=== PATIENT | female | born 1940 | race Caucasian/White ===

== ENCOUNTER → 2018-03-15 09:58 | Outpatient (CLI) | payer OTHER, SELFPAY | PROVIDERS: Family Provider Family Medicine; PCP Family Medicine; Visit Provider Family Medicine | DX: Z13.820 Encounter for screening for osteoporosis (principal); Z78.0 Asymptomatic menopausal state; E07.9 Disorder of thyroid, unspecified; E11.9 Type 2 diabetes mellitus without complications; Z82.62 Family history of osteoporosis | CPT/HCPCS: 77080 ==

== ENCOUNTER 2019-08-17 15:38 | Emergency (ER) | payer OTHER, SELFPAY ==
[2019-08-17 15:43] VITALS: BP 184/81; PULSE 95; RESP 20; TEMP 36.7; O2SAT 96
--- NOTE | 2019-08-17 17:16 | DI.US.S_ITS ---
PROCEDURE: US PELVIC COMPLETE INDICATIONS: VAGINAL BLEEDING TECHNIQUE: Real-time scanning was performed of the pelvic organs, with image documentation. Additional endovaginal scanning was necessary due to incomplete visualization of the adnexal and endometrial structures by transabdominal scanning. COMPARISON: [facility], CT, KIDNEY/ URETER/BLADDER, 12/17/2012, 7:21. FINDINGS: Transabdominal scanning: Limited scanning through the kidneys shows no hydronephrosis. No pathologic free abdominal or pelvic fluid. Endovaginal scanning: Uterus: Uterus is enlarged measuring 10.8 x 5.4 x 6.6 cm. The endometrium is thickened measuring 22.5 mm in combined thickness. There are 2 uterine fibroids. A 2.6 x 1.4 x 1.1 cm intramural fibroid is seen in the anterior left uterine wall. A 3.2 x 3.1 x 2.2 cm submucosal fibroid is seen in in the left posterior wall. Ovaries: Ovaries are not visualized. IMPRESSION: 1. Thickened endometrium. In this postmenopausal woman, endometrial neoplasm needs to be excluded. Recommend gynecological followup and endometrial sampling. 2. Uterine fibroids. 3. Ovaries are not visualized. Dictated by: Umair Franco M.D. on 08/17/2019 at 18:38 Approved by: Umair Franco M.D. on 08/17/2019 at 18:42
--- NOTE | 2019-08-17 17:20 | ED.FEMALEGU ---
HPI - Female Genitourinary <SUSAN Priest-BC - Last Filed: 08/17/19 20:01> General Chief complaint: Urogenital-Female Stated complaint: blood in urine Time Seen by Provider: 08/17/19 16:39 Source: patient and family Mode of arrival: Ambulatory Limitations: no limitations History of Present Illness HPI Narrative: The patient is a 78-year-old female nonsmoker with history of hypothyroid who presents with a chief complaint of sudden onset of vaginal bleeding approximately 3 prior to arrival. She states that she was passing clots, she was worried about blood loss. She states that she has been passing blood even when not urinating. 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 She denies any vaginal discharge. She denies any abdominal pain, but notes some cramping yesterday. She denies any dysuria urgency or frequency. Denies fevers. Denies flank pain. States that the bleeding has slowed upon arrival to the emergency department. Related Data Home Medications Medication Instructions Recorded Confirmed aspirin 81 mg PO QDAY #0 02/12/13 atorvastatin [Lipitor] #0 02/12/13 doxazosin [Cardura XL] 8 mg PO HS #0 02/12/13 levothyroxine [Synthroid] 50 mcg PO QDAY #0 02/12/13 metformin [Glucophage XR] 500 mg PO QDAY #0 02/12/13 losartan-hydrochlorothiazide 1 tab PO QDAY #0 tab 03/19/13 Previous Rx's Medication Instructions Recorded cephalexin 500 mg PO TID 7 Days #21 cap 08/17/19 Exam <MOY Priest - Last Filed: 08/17/19 20:01> Narrative Exam Narrative: GENERAL: Elderly female in no acute distress HEAD: Atraumatic. Normocephalic. No temporal or scalp tenderness. EYES: Pupils equal round and reactive. Extraocular motions intact. No scleral icterus. No injection or drainage. ENT: Nose without bleeding, purulent drainage or septal hematoma. Throat without erythema, tonsillar hypertrophy or exudate. Uvula midline. Airway patent. NECK: Trachea midline. No JVD or lymphadenopathy. Supple, nontender, no meningeal signs. CARDIOVASCULAR: Regular rate and rhythm RESPIRATORY: Clear to auscultation. Breath sounds equal bilaterally. No wheezes, rales, or rhonchi. No cough. No increased respiratory effort. No accessory muscle use. GASTROINTESTINAL: Abdomen soft, non-tender, nondistended. No hepato-splenomegaly, or palpable masses. No guarding. : Blood noted around vaginal introitus. External exam with Mercedes DOUGLAS at bedside EXTREMITIES: No clubbing, cyanosis, or edema. No joint tenderness, effusion, or edema noted. BACK: Nontender without deformity or crepitance. No flank tenderness. No CVA tenderness bilaterally. NEURO: AOx3, stable gait. Using all extremities equally. SKIN: No rash or erythema on visible skin Initial Vital Signs Initial Vital Signs: Vital Signs Temperature 98.0 F 08/17/19 15:43 Pulse Rate 95 H 08/17/19 15:43 Respiratory Rate 08/17/19 15:43 Blood Pressure 184/81 H 08/17/19 15:43 Pulse Oximetry 96 08/17/19 15:43 <Franc Garrido DO - Last Filed: 08/17/19 20:12> Initial Vital Signs Initial Vital Signs: Vital Signs Temperature 98.0 F 08/17/19 15:43 Pulse Rate 95 H 08/17/19 15:43 Respiratory Rate 20 08/17/19 15:43 Blood Pressure 184/81 H 08/17/19 15:43 Pulse Oximetry 96 08/17/19 15:43 Course <MOY Priest - Last Filed: 08/17/19 20:01> Orders Ordered: ED Orders 08/17/19 17:16 US pelvic complete Stat 08/17/19 17:18 Urinalysis and Microscopic Stat Urine Culture Stat 08/17/19 17:43 Complete Blood Count AUTO DIFF Stat Comprehensive Metabolic Panel Stat Partial Thromboplastin Time Stat Prothrombin Time INR Stat Discontinued Medications Cephalexin HCl (Keflex) 500 mg PO NOW ONE Stop: 08/17/19 19:31 Last Admin: 08/17/19 19:46 Dose: 500 mg Documented by: EDWINA Vital Signs Vital signs: Vital Signs - 8 hr 08/17/19 15:43 08/17/19 19:50 Temperature 98.0 F Pulse Rate 95 H 91 H Respiratory Rate 20 Blood Pressure 184/81 H Blood Pressure [Right Arm] 170/73 H Pulse Oximetry 96 95 <DO Herrera Giordano Last Filed: 08/17/19 20:12> Orders Ordered: ED Orders 08/17/19 17:16 US pelvic complete Stat 08/17/19 17:18 Urinalysis and Microscopic Stat Urine Culture Stat 08/17/19 17:43 Complete Blood Count AUTO DIFF Stat Comprehensive Metabolic Panel Stat Partial Thromboplastin Time Stat Prothrombin Time INR Stat Discontinued Medications Cephalexin HCl (Keflex) 500 mg PO NOW ONE Stop: 08/17/19 19:31 Last Admin: 08/17/19 19:46 Dose: 500 mg Documented by: EDIWNA Vital Signs Vital signs: Vital Signs - 8 hr 08/17/19 15:43 08/17/19 19:50 Temperature 98.0 F Pulse Rate 95 H 91 H Respiratory Rate 20 Blood Pressure 184/81 H Blood Pressure [Right Arm] 170/73 H Pulse Oximetry 96 95 MDM - Female Genitourinary <MYKEL Priest - Last Filed: 08/17/19 20:01> Lab Data Result diagrams: 08/17/19 17:43 08/17/19 17:43 Labs: Lab Results 08/17/19 08/17/19 08/17/19 Range/Units 17:18 17:43 17:43 WBC 8.2 (4.5-11.0) X10^3/uL RBC 4.88 (4.0-5.2) X10^6/uL Hgb 12.2 (12.0-16.0) g/dL Hct 38.4 (36-46) % MCV 78.5 L (80-100) fL MCH 25.0 L (26-34) PG MCHC 31.8 (30-36) % RDW 16.5 H (11.6-14.8) % Plt Count 277 (150-400) X10^3/uL Neut % (Auto) 70.7 (50-75) % Lymph % (Auto) 18.6 L (25-40) % [place] % (Auto) 8.5 (3-14) % Eos % (Auto) 1.6 L (2-4) % Baso % (Auto) 0.6 (0-2) % Neut # (Auto) 5800 (8515-1290) /uL Lymph # (Auto) 1500 (1591-9319) /uL [place] # (Auto) 700 (0-900) /uL Eos # (Auto) 100 (0-450) /uL Baso # (Auto) 100 (0-100) /uL PT (10.1-12.7) SECONDS INR (0.9-1.3) APTT (26.4-36.2) SECONDS Sodium 145 (137-145) mmol/L Potassium 4.2 (3.4-5.1) mmol/L Chloride 109 H (98-107) mmol/L Carbon Dioxide 24 (22-32) mmol/L BUN 30 H (7-17) mg/dL Creatinine 1.00 (0.52-1.04) mg/dL Estimated GFR 53.8 L (>60) mL/min BUN/Creatinine Ratio 30.0 H (6-22) Glucose 119 H (80-110) mg/dL Calcium 10.3 H (8.4-10.2) mg/dL Total Bilirubin 0.3 (0.2-1.3) mg/dL AST 30 (14-36) IU/L ALT 24 (<35) IU/L Alkaline Phosphatase 99 (38-126) U/L Total Protein 8.4 H (6.3-8.2) g/dL Albumin 4.6 (3.5-5.0) g/dL Globulin 3.8 (1.7-4.1) g/dL Albumin/Globulin Ratio 1.2 (1.0-2.8) Urine Color Brown Urine Appearance Cloudy Urine pH 5.5 (4.5-8.0) Ur Specific [place] 1.020 (1.000-1.035) Urine Protein 2+ H (Negative) Urine Glucose (UA) Negative (Negative) g/dL Urine Ketones Negative (NEGATIVE) Urine Occult Blood 3+ H (Negative) Urine Nitrate Positive (Negative) Urine Bilirubin Negative (NEGATIVE) Urine Urobilinogen 0.2 (0.2) E.U./dL Ur Leukocyte Esterase 1+ H (NEGATIVE) Urine RBC >100/hpf H (0-5/HPF) Urine WBC 5-10/hpf H (0-5/HPF) Ur Squamous Epith Cells 1-5 /hpf (0-5/HPF) Urine Bacteria Moderate (10-30) H (None) Ur Culture Indicated? Specimen cultured 08/17/19 Range/Units 17:43 WBC (4.5-11.0) X10^3/uL RBC (4.0-5.2) X10^6/uL Hgb (12.0-16.0) g/dL Hct (36-46) % MCV (80-100) fL MCH (26-34) PG MCHC (30-36) % RDW (11.6-14.8) % Plt Count (150-400) X10^3/uL Neut % (Auto) (50-75) % Lymph % (Auto) (25-40) % [place] % (Auto) (3-14) % Eos % (Auto) (2-4) % Baso % (Auto) (0-2) % Neut # (Auto) (4658-1145) /uL Lymph # (Auto) (6547-2858) /uL [place] # (Auto) (0-900) /uL Eos # (Auto) (0-450) /uL Baso # (Auto) (0-100) /uL PT 12.2 (10.1-12.7) SECONDS INR 1.1 (0.9-1.3) APTT 30 (26.4-36.2) SECONDS Sodium (137-145) mmol/L Potassium (3.4-5.1) mmol/L Chloride (98-107) mmol/L Carbon Dioxide (22-32) mmol/L BUN (7-17) mg/dL Creatinine (0.52-1.04) mg/dL Estimated GFR (>60) mL/min BUN/Creatinine Ratio (6-22) Glucose (80-110) mg/dL Calcium (8.4-10.2) mg/dL Total Bilirubin (0.2-1.3) mg/dL AST (14-36) IU/L ALT (<35) IU/L Alkaline Phosphatase (38-126) U/L Total Protein (6.3-8.2) g/dL Albumin (3.5-5.0) g/dL Globulin (1.7-4.1) g/dL Albumin/Globulin Ratio (1.0-2.8) Urine Color Urine Appearance Urine pH (4.5-8.0) Ur Specific [place] (1.000-1.035) Urine Protein (Negative) Urine Glucose (UA) (Negative) g/dL Urine Ketones (NEGATIVE) Urine Occult Blood (Negative) Urine Nitrate (Negative) Urine Bilirubin (NEGATIVE) Urine Urobilinogen (0.2) E.U./dL Ur Leukocyte Esterase (NEGATIVE) Urine RBC (0-5/HPF) Urine WBC (0-5/HPF) Ur Squamous Epith Cells (0-5/HPF) Urine Bacteria (None) Ur Culture Indicated? 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 Additional endovaginal scanning was necessary due to incomplete visualization of the adnexal and endometrial structures by transabdominal scanning. COMPARISON: [facility], CT, KIDNEY/ URETER/BLADDER, 12/17/2012, 7:21. FINDINGS: Transabdominal scanning: Limited scanning through the kidneys shows no hydronephrosis. No pathologic free abdominal or pelvic fluid. Endovaginal scanning: Uterus: Uterus is enlarged measuring 10.8 x 5.4 x 6.6 cm. The endometrium is thickened measuring 22.5 mm in combined thickness. There are 2 uterine fibroids. A 2.6 x 1.4 x 1.1 cm intramural fibroid is seen in the anterior left uterine wall. A 3.2 x 3.1 x 2.2 cm submucosal fibroid is seen in in the left posterior wall. Ovaries: Ovaries are not visualized. IMPRESSION: 1. Thickened endometrium. In this postmenopausal woman, endometrial neoplasm needs to be excluded. Recommend gynecological followup and endometrial sampling. 2. Uterine fibroids. 3. Ovaries are not visualized. Dictated by: Umair Franco M.D. on 08/17/2019 at 18:38 Approved by: Umair Franco M.D. on 08/17/2019 at 18:42 MDM Narrative Medical decision making narrative: The patient is a 78-year-old female who presents with chief complaint of postmenopausal vaginal bleeding which has slowed since arrival to the emergency department. Ultrasound shows endometrial thickening with fibroids. I spoke with Dr. Mayers, [facility] OBG[facility] regarding this patient to help arrange follow-up. I did discuss with the patient that she needs follow-up and endometrial biopsy to help rule out serious etiology such as cancer. She was also found have a urinary tract infection with nitrate positive urine. I initiate treated with Keflex at the patient has only one kidney in order to decrease exposure to nephrotoxic agents. I did discuss at length the importance of follow-up with primary care provider. Discussed monitor for signs of worsening such as fevers, flank pain etcetera. Patient was discharged home with daughter. No questions or concerns upon discharge and states understanding return precautions as well as follow-up care. She was able to tolerate her 1st dose of antibiotics in the emergency department. <Franc Garrido, - Last Filed: 08/17/19 20:12> Lab Data Labs: Lab Results 08/17/19 08/17/19 08/17/19 Range/Units 17:18 17:43 17:43 WBC 8.2 (4.5-11.0) X10^3/uL RBC 4.88 (4.0-5.2) X10^6/uL Hgb 12.2 (12.0-16.0) g/dL Hct 38.4 (36-46) % MCV 78.5 L (80-100) fL MCH 25.0 L (26-34) PG MCHC 31.8 (30-36) % RDW 16.5 H (11.6-14.8) % Plt Count 277 (150-400) X10^3/uL Neut % (Auto) 70.7 (50-75) % Lymph % (Auto) 18.6 L (25-40) % [place] % (Auto) 8.5 (3-14) % Eos % (Auto) 1.6 L (2-4) % Baso % (Auto) 0.6 (0-2) % Neut # (Auto) 5800 (5952-6717) /uL Lymph # (Auto) 1500 (9578-8381) /uL [place] # (Auto) 700 (0-900) /uL Eos # (Auto) 100 (0-450) /uL Baso # (Auto) 100 (0-100) /uL PT (10.1-12.7) SECONDS INR (0.9-1.3) APTT (26.4-36.2) SECONDS Sodium 145 (137-145) mmol/L Potassium 4.2 (3.4-5.1) mmol/L Chloride 109 H (98-107) mmol/L Carbon Dioxide 24 (22-32) mmol/L BUN 30 H (7-17) mg/dL Creatinine 1.00 (0.52-1.04) mg/dL Estimated GFR 53.8 L (>60) mL/min BUN/Creatinine Ratio 30.0 H (6-22) Glucose 119 H (80-110) mg/dL Calcium 10.3 H (8.4-10.2) mg/dL Total Bilirubin 0.3 (0.2-1.3) mg/dL AST 30 (14-36) IU/L ALT 24 (<35) IU/L Alkaline Phosphatase 99 (38-126) U/L Total Protein 8.4 H (6.3-8.2) g/dL Albumin 4.6 (3.5-5.0) g/dL Globulin 3.8 (1.7-4.1) g/dL Albumin/Globulin Ratio 1.2 (1.0-2.8) Urine Color Brown Urine Appearance Cloudy Urine pH 5.5 (4.5-8.0) Ur Specific [place] 1.020 (1.000-1.035) Urine Protein 2+ H (Negative) Urine Glucose (UA) Negative (Negative) g/dL Urine Ketones Negative (NEGATIVE) Urine Occult Blood 3+ H (Negative) Urine Nitrate Positive (Negative) Urine Bilirubin Negative (NEGATIVE) Urine Urobilinogen 0.2 (0.2) E.U./dL Ur Leukocyte Esterase 1+ H (NEGATIVE) Urine RBC >100/hpf H (0-5/HPF) Urine WBC 5-10/hpf H (0-5/HPF) Ur Squamous Epith Cells 1-5 /hpf (0-5/HPF) Urine Bacteria Moderate (10-30) H (None) Ur Culture Indicated? Specimen cultured 08/17/19 Range/Units 17:43 WBC (4.5-11.0) X10^3/uL RBC (4.0-5.2) X10^6/uL Hgb (12.0-16.0) g/dL Hct (36-46) % MCV (80-100) fL MCH (26-34) PG MCHC (30-36) % RDW (11.6-14.8) % Plt Count (150-400) X10^3/uL Neut % (Auto) (50-75) % Lymph % (Auto) (25-40) % [place] % (Auto) (3-14) % Eos % (Auto) (2-4) % Baso % (Auto) (0-2) % Neut # (Auto) (3384-8656) /uL Lymph # (Auto) (6230-5578) /uL [place] # (Auto) (0-900) /uL Eos # (Auto) (0-450) /uL Baso # (Auto) (0-100) /uL PT 12.2 (10.1-12.7) SECONDS INR 1.1 (0.9-1.3) APTT 30 (26.4-36.2) SECONDS Sodium (137-145) mmol/L Potassium (3.4-5.1) mmol/L Chloride (98-107) mmol/L Carbon Dioxide (22-32) mmol/L BUN (7-17) mg/dL Creatinine (0.52-1.04) mg/dL Estimated GFR (>60) mL/min BUN/Creatinine Ratio (6-22) Glucose (80-110) mg/dL Calcium (8.4-10.2) mg/dL Total Bilirubin (0.2-1.3) mg/dL AST (14-36) IU/L ALT (<35) IU/L Alkaline Phosphatase (38-126) U/L Total Protein (6.3-8.2) g/dL Albumin (3.5-5.0) g/dL Globulin (1.7-4.1) g/dL Albumin/Globulin Ratio (1.0-2.8) Urine Color Urine Appearance Urine pH (4.5-8.0) Ur Specific [place] (1.000-1.035) Urine Protein (Negative) Urine Glucose (UA) (Negative) g/dL Urine Ketones (NEGATIVE) Urine Occult Blood (Negative) Urine Nitrate (Negative) Urine Bilirubin (NEGATIVE) Urine Urobilinogen (0.2) E.U./dL Ur Leukocyte Esterase (NEGATIVE) Urine RBC (0-5/HPF) Urine WBC (0-5/HPF) Ur Squamous Epith Cells (0-5/HPF) Urine Bacteria (None) Ur Culture Indicated? Discharge Plan Departure Patient Disposition: Home Clinical Impression: DUB (dysfunctional uterine bleeding) Urinary tract infection Qualifiers: Urinary tract infection type: site unspecified Hematuria presence: with hematuria Qualified Code(s): N39.0 - Urinary tract infection, site not specified Discharge Date/Time: 08/17/19 20:02 Activity Restrictions/Additional Instructions: As discussed, your ultrasound thickening of your endometrium which needs follow-up and further evaluation. There can be several reasons for this, one of them includes endometrial cancer. I spoke with Dr. Mayers, on-call OBGYN regarding your care. Please contact her for follow-up. You also had a urinary tract infection. I sent a prescription of Keflex to [facility] in [facility]. Please push fluids. Please monitor for fever, flank pain or any signs of worsening. Please also follow-up with primary care provider. Please come back to the emergency department for any acute concerns. Prescriptions: New cephalexin 500 mg capsule 500 mg PO TID 7 Days Qty: 21 RF: 0 No Action atorvastatin [Lipitor] 40 MG tablet Qty: 0 RF: 0 metformin [Glucophage XR] 500 MG tablet extended release 24 hr 500 mg PO QDAY Qty: 0 RF: 0 doxazosin [Cardura XL] 8 MG tablet extended release 24hr 8 mg PO HS Qty: 0 RF: 0 aspirin 81 MG tablet,delayed release (DR/EC) 81 mg PO QDAY Qty: 0 RF: 0 levothyroxine [Synthroid] 50 MCG tablet 50 mcg PO QDAY Qty: 0 RF: 0 losartan-hydrochlorothiazide 100 MG/25 MG tablet 1 tab PO QDAY Qty: 0 RF: 0 Referrals: Froilan Grier MD [Primary Care Provider] - Catalina Mayers MD [Physician] -
[2019-08-17 17:39] LABS: Appearance Urine UA CLOUDY; Bilirubin Urine UA NEGATIVE (NEGATIVE); Color Urine UA BROWN; Glucose Urine UA NEGATIVE (Negative); Ketones Urine UA NEGATIVE (NEGATIVE); Leukocyte Esterase Urine UA 1+ (NEGATIVE); Nitrite Urine UA POSITIVE (Negative); Occult Blood Urine UA 3+ (Negative); Protein Urine UA 2+ (Negative); Urobilinogen Urine UA 0.2 E.U./dL (0.2)
[2019-08-17 17:40] LABS: pH Urine UA 5.5 (4.5-8.0)
[2019-08-17 17:45] LABS: Add Manual Diff / Slide Review NO; Basophils Absolute Auto 100 /uL (0-100); Basophils Percent Auto 0.6 % (0-2); Eosinophils Absolute Auto 100 /uL (0-450); Eosinophils Percent Auto 1.6 % (2-4); Hematocrit 38.4 % (36-46); Hemoglobin 12.2 g/dL (12.0-16.0); Lymphocytes Absolute Auto 1500 /uL (1100-4500); Lymphocytes Percent Auto 18.6 % (25-40); Mean Corpuscular HGB Conc 31.8 % (30-36); Mean Corpuscular Volume 78.5 fL (80-100); Monocytes Absolute Auto 700 /uL (0-900); Monocytes Percent Auto 8.5 % (3-14); Neutrophils Absolute Auto 5800 /uL (1500-7000); Neutrophils Percent Auto 70.7 % (50-75); Platelet Count 277 X10^3/uL (150-400); Red Blood Cell Count 4.88 X10^6/uL (4.0-5.2); Red Cell Distribution Width 16.5 % (11.6-14.8); White Blood Cell Count 8.2 X10^3/uL (4.5-11.0)
[2019-08-17 17:47] LABS: RBC Urine >100/HPF (0-5/HPF); Squamous Epithelial Cell Urine 1-5 /HPF (0-5/HPF); WBC Urine 5-10/HPF (0-5/HPF)
[2019-08-17 17:48] LABS: Bacteria Urine Moderate (10-30); Culture Indicated Urine Specimen Cultured
[2019-08-17 17:56] LABS: Alanine Aminotransferase 24 IU/L (<35); Albumin 4.6 g/dL (3.5-5.0); Albumin Globulin Ratio 1.2 (1.0-2.8); Alkaline Phosphatase 99 U/L (38-126); Aspartate Aminotransferase 30 IU/L (14-36); Bilirubin Total 0.3 mg/dL (0.2-1.3); Blood Urea Nitrogen 30 mg/dL (7-17); Calcium 10.3 mg/dL (8.4-10.2); Carbon Dioxide 24 mmol/L (22-32); Chloride 109 mmol/L (98-107); Estimated Glomerular Filt Rate 53.8 mL/min (>60); Globulin 3.8 g/dL (1.7-4.1); Glucose 119 mg/dL (80-110); HEMOLYSIS < 15 (0-50); Potassium 4.2 mmol/L (3.4-5.1); Sodium 145 mmol/L (137-145); Total Protein 8.4 g/dL (6.3-8.2)
[2019-08-17 18:01] LABS: INR 1.1 (0.9-1.3); Prothrombin Time 12.2 SECONDS (10.1-12.7)
[2019-08-17 18:03] LABS: PTT Partial Thromboplastin Tim 30 SECONDS (26.4-36.2)
[2019-08-17] MEDS: cephALEXin 250 MG CAPSULE 500 MG PO (19:46)
[2019-08-17 19:50] VITALS: BP 170/73; PULSE 91; O2SAT 95
== END 2019-08-17 20:02 | disposition home or self-care (01) ==
PROVIDERS: Emergency Provider Nurse Practitioner Family; Family Provider Family Medicine; PCP Family Medicine
DX: N39.0 Urinary tract infection, site not specified (principal); N93.8 Other specified abnormal uterine and vaginal bleeding
CPT/HCPCS: 36415; 76830; 76856; 80053; 81001; 85025; 85610; 85730; 87077; 87086; 87186; 99283; 99284